=== PATIENT | female | born 1990 | race Caucasian/White ===

== ENCOUNTER 2018-03-07 14:15 | Emergency (ER) | payer OTHER ==
[~2018-03-07] VITALS: Ht 160 cm; Wt 102.5 kg
[2018-03-07 14:33] VITALS: BP 139/75
--- NOTE | 2018-03-07 14:51 | PHYS DOC ---
Past History Past Medical History: Anxiety, Fibromyalgia, Migraines Past Surgical History: Cholecystectomy Alcohol Use: None Drug Use: None Adult General Chief Complaint Chief Complaint: RECTAL BLEED [facility] HPI Patient is a 28 year old female at 37 weeks of gestation who presents with complaining of rectal bleeding. Patient complaining of painful rectal bleeding with bright red blood during and after bowel movement without constipation or diarrhea for the last 1 week that gradually getting worse. Patient states she was seen by her COMPOSITE BOND TECHNICIAN 2 days ago and without rectal exam got prescription for combine medication of lidocaine and hydrocortisone improvement of her condition. Patient states she had history of hemorrhoids with her previous as a mild problem. Patient denies abdominal contraction and vaginal bleeding. Review of Systems Review of Systems Constitutional: Denies fever or chills [] Eyes: Denies change in visual acuity, redness, or eye pain [] HENT: Denies nasal congestion or sore throat [] Respiratory: Denies cough or shortness of breath [] Cardiovascular: No additional information not addressed in HPI [] GI: Denies abdominal pain, nausea, vomiting, bloody stools or diarrhea, reports rectal pain [] : Denies dysuria or hematuria [] Musculoskeletal: Denies back pain or joint pain [] Integument: Denies rash or skin lesions [] Neurologic: Denies headache, focal weakness or sensory changes [] Endocrine: Denies polyuria or polydipsia [] All other systems were reviewed and found to be within normal limits, except as documented in this note. Allergies Allergies Allergies Coded Allergies Type Severity Reaction Last Updated Verified No Known Drug Allergies 03/07/18 No Physical Exam Physical Exam Constitutional: Well developed, well nourished, mild distress, non-toxic appearance. [] HENT: Normocephalic, atraumatic. Eyes: PERRLA, EOMI, conjunctiva normal, no discharge. [] Neck: Normal range of motion, no tenderness, supple, no stridor. [] Cardiovascular:Heart rate regular rhythm, no murmur [] Lungs & Thorax: Bilateral breath sounds clear to auscultation [] Abdomen: Bowel sounds normal, soft, no tenderness, no masses, no pulsatile masses, gravid abdomen, no contraction of tenderness. Rectal exam with present of veneer sample maker showed multiple external hemorrhoids with edema and tenderness, one large thrombosed hemorrhoid at 5 o'clock that artery was open and I drained several clots with squeezing the tag, patient has several internal hemorrhoids. Skin: Warm, dry, no erythema, no rash. [] Back: No tenderness, no CVA tenderness. [] Extremities: No tenderness, no cyanosis, no clubbing, ROM intact, no edema. [] Neurologic: Alert and oriented X 3, normal motor function, normal sensory function, no focal deficits noted. [] Psychologic: Affect normal, judgement normal, mood normal. [] Current Patient Data Vital Signs Vital Signs Date Time Temp Pulse Resp B/P (MAP) Pulse Ox O2 Delivery O2 Flow Rate FiO2 03/07/18 14:33 98.2 95 18 98 Room Air EKG EKG [] Radiology/Procedures Radiology/Procedures [] Course & Med Decision Making Course & Med Decision Making Evaluation of patient in ER showed 35-year-old female patient at 37 weeks of gestation with multiple external hemorrhoids with one large thrombosed hemorrhoid that getting in ER. Patient instructed to continue her home medication and uses sitz bath and avoid of constipation and diarrhea and follow up with her COMPOSITE BOND TECHNICIAN if not getting better. Dragon Disclaimer Dragon Disclaimer This electronic medical record was generated, in whole or in part, using a voice recognition dictation system. Departure Departure: Impression: Primary Impression: Thrombosed external hemorrhoid Additional Impression: Currently Disposition: 01 HOME, SELF-CARE (at 1448) Condition: IMPROVED Referrals: BALJNIDER MORAN MD (PCP) Patient Instructions: Hemorrhoids, Sitz Bath Additional Instructions: Drink plenty of liquids Follow-up with your primary care physician in 3-5 days Return to ER if not getting better Avoid of constipation and diarrhea Continue home rectal ointment Use sitz baths several times a day Problem Qualifiers CARISSA ABBASI MD Mar 07, 2018 14:51
[2018-03-07] MEDS ORDERED: LIDOCAINE/PRILOCAINE TOPICAL CREAM 5GM TUBE. TP ONE (15:15)
== END 2018-03-07 15:06 | disposition home or self-care (01) ==
LOC: ER 14:15
DX: O22.43 Hemorrhoids in pregnancy, third trimester (principal); O99.343 Other mental disorders complicating pregnancy, third trimester; F41.9 Anxiety disorder, unspecified; M79.7 Fibromyalgia; G43.909 Migraine, unspecified, not intractable, without status migrainosus; Z3A.37 37 weeks gestation of pregnancy
CPT/HCPCS: 99283